=== PATIENT | female | born 1950 | race Caucasian/White ===

== ENCOUNTER 2022-07-14 16:49 | Inpatient (IN) ==
[2022-07-14 17:13] LABS: POC Calcium, Ionized 0.91 (1.16-1.32); POC Creatinine 1.1 (0.6-1.2); POC Potassium 2.4 (3.3-5.1)
[2022-07-14] MEDS ORDERED: POTASSIUM CHLORIDE 20 MEQ in DEXTROSE 5% IN WATER 250 ML IV ONE ×2 (17:22→21:27)
[2022-07-14] MEDS ORDERED: POTASSIUM CHLORIDE 20 MEQ TABLET PO ONE (17:22)
--- NOTE | 2022-07-14 17:24 | Emergency Department Note ---
HPI General Chief complaint: Recheck/Abnormal Lab/Rx Stated complaint: Potassium infusion Time Seen by Provider: 07/14/22 16:50 Source: patient Mode of arrival: ambulatory History of Present Illness HPI Narrative: Narrative: This is a 71-year-old female presenting emergency department from urgent care for hyponatremia and hypokalemia. The patient patient reports that she has started on new blood pressure medication called chlorthalidone. She does not take supplemental potassium. She has never taken this medication before and she started on May 29. She tells me that she has been having increased weakness and confusion now for a while and over the last couple days her balance has been much worse as well. Yesterday she started to have tachypnea and actually called 911 and paramedics came and checked her vital signs and they thought at the time that she was having a panic attack. She then had another episode today and was concerned and went to urgent care at [facility]. They did a CMP there which showed a sodium of 122 and a potassium of 2.6 normal glucose at 109. She has been treated for an upper respiratory infection which has been improving since she has been on Augmentin. She has not had any new medications other than those. She has not been having any fevers chest pain shortness of breath abdominal pain nausea vomiting diarrhea or other focal neurological deficits. She reports that she has not been drinking more water than is usual and actually has probably been drinking less. She is treated for hypertension, dyslipidemia, seasonal allergies, restless leg syndrome. Related Data Home Medications Medication Instructions Recorded Confirmed Lactobacillus,Bifido 30 500 ea PO DAILY 05/27/22 07/14/22 mg-colostrum 500 mg-FOS 50 mg oral powder pack (Probiotic Plus Colostrum) aspirin 81 mg tablet,delayed 81 mg PO QDAY 05/27/22 07/14/22 release (Adult Low Dose Aspirin) atorvastatin 40 mg tablet 40 mg PO QDAY 05/27/22 07/14/22 clobetasol 0.05 % scalp solution 1 applic topical .2XWEEK PRN Skin 05/27/22 07/14/22 Irritation conjugated estrogens 0.625 mg/gram 0.3125 mg vaginal .2XWEEK 05/27/22 07/14/22 vaginal cream (Premarin) fluticasone propionate 50 1 spray intranasal QDAY 05/27/22 07/14/22 mcg/actuation nasal spray,suspension montelukast 10 mg tablet 10 mg PO QDAY 05/27/22 07/14/22 ropinirole 1 mg tablet 1 mg PO QHS 05/27/22 07/14/22 lisinopril 20 mg tablet 20 mg PO DAILY 07/14/22 07/14/22 Previous Rx's Medication Instructions Recorded chlorthalidone 25 mg tablet 25 mg PO Q OTHER DAY HTN #30 tabs 05/29/22 Allergies Allergy/AdvReac Type Severity Reaction Status Date / Time No Known Drug Allergies Allergy Verified 05/29/22 15:00 Review of Systems ROS ROS Narrative: Narrative: All systems ED: reviewed and negative except as stated. PFSH Narrative Patient History Narrative: Narrative: Medical/Surgical/Family History All Active Problems (Updated 07/14/22 @ 18:46 by Dejon Morales PA-C) COPD (chronic obstructive pulmonary disease) (Acute) Hypokalemia (Acute) Hyponatremia (Acute) Decreased renal function (Chronic) Menopausal state (Chronic) Essential hypertension, benign (Chronic) Chronic kidney disease (Chronic) Mixed hyperlipidemia (Chronic) Restless leg syndrome (Chronic) Allergic rhinitis (Chronic) Elevated serum creatinine (Acute) Medical History Allergic rhinitis Chronic kidney disease Decreased renal function Essential hypertension, benign No biochemical evidence of secondary causes of hypertension and CT appearance of kidneys does not suggest renovascular disease Menopausal state Mixed hyperlipidemia Restless leg syndrome Surgical History No pertinent past surgical history Family History Mother Hypertension Father , from heart complications due to rheumatic fever Rheumatic fever Hypertension Social History Smoking Status: Never smoker Alcohol Intake Frequency: does not drink Substance Use: does not use Exam Narrative Narrative: Narrative: Course Vital Signs Vital signs: Vital Signs Temperature 98.1 F 07/14/22 16:55 Pulse Rate 61 07/14/22 16:55 Respiratory Rate 16 07/14/22 16:55 Blood Pressure 151/83 07/14/22 16:55 Pulse Oximetry (%) 97 07/14/22 16:55 Oxygen Delivery Method Room Air 07/14/22 16:55 Temperature 98.1 F 07/14/22 18:33 Pulse Rate 67 07/14/22 18:33 Respiratory Rate 12 07/14/22 18:33 Blood Pressure 185/96 07/14/22 18:33 Pulse Oximetry (%) 97 07/14/22 18:33 Oxygen Delivery Method Room Air 07/14/22 16:55 MDM MDM Narrative Medical decision making narrative: Narrative: The patient was sent over here with known hypokalemia and hyponatremia. I do think that this is most likely due to the chlorthalidone that was started last month. I have ordered 20 mEq of IV potassium along with 40 mEq of oral potassium and 1 L of normal saline. I have also ordered work-up labs for hyponatremia which are pending at admission EKG shows normal sinus rhythm with prolonged QTc. I spoke with the hospitalist Dr Romeo who agreed to admit the patient for further evaluation and treatment. Lab Data Labs: Lab Results 07/14/22 Range/Units 17:11 POC Hct 40.0 (36-48) POC Sodium 120 L (133-145) POC Potassium 2.4 L* (3.3-5.1) POC Chloride 79 L (96-108) POC Total CO2 28.0 (22-30) POC BUN 13 (6-20) POC Creatinine 1.1 (0.6-1.2) POC Glucose 111 H (70-105) POC WB Ioniz Calcium 0.91 L (1.16-1.32) EKG Data EKG #1: EKG results narrative: ECG shows a sinus rhythm at 63 beats a minute, left axis deviation, normal [place] interval narrow QRS QTc is prolonged at [address] segment deviations or hyperacute T waves. Interpretation sinus rhythm with prolonged QTc Discharge Plan Patient/Caregiver Discharge Instructions Pt seen by DIETARY SERVER/PA only: Yes Clinical Impression: Hyponatremia, Hypokalemia Patient Disposition: Xfer As Inpt ([facility]) Condition: Serious Discharge Date/Time: 07/14/22 18:40 For this patient encounter, I reviewed the midlevel providers documentation, medical decisionmaking, and treatment plan. I discussed the case with the midlevel provider, although I did not personally evaluate the patient.
[2022-07-14] MEDS ORDERED: 0.9 % SODIUM CHLORIDE 1,000 ML IV SCH (17:30)
--- NOTE | 2022-07-14 18:29 | Internal Med History&Physical ---
HPI History of Present Illness Patient information: Note initiated : 07/14/22 at 6:27 pm Service Date, if different from initiated Date: [] Patient: Cristhian Hung a 71 y/o F admitted on for Potassium infusion. Chief Complaint: [General body weakness] Chief complaint: General body weakness History of present illness: Ms. Hung is a 71 year old F history of essential hypertensions, dyslipidemia, restless leg syndrome, COPD, presenting with 2-day history of worsening general body weakness. She is also commenting of leg cramps. She denies any upper extremity muscle cramps otherwise. She denies any confusions. Of note, her PCP switched her blood pressure medications from lisinopril to Chlorthalidone about 6 weeks ago. Labs drawn from urgent care earlier today showing significant findings including hyponatremia with serum sodium level of 120 as well as hypokalemia with serum potassium level 2.4. She was urged to come to our ED for further evaluation and treatments. Rest of the labs including TSH and serum mag nesium level pending. She was given potassium chloride 40 M EQ orally as well as 20 mEq IV. She is also currently receiving normal saline 1 L bolus in the ED. EKG pending. Admission request is called for symptomatic electrolyte imbalance with hyponatremia and hypokalemia likely secondary to medication side effects. Constitutional Constitutional: Present weakness; Absent chills, excessive sweating, fatigue or fever(s) EENT Eyes: Absent blurry vision, change in vision, loss of vision or other visual disturbances Ears: Absent decreased hearing or tinnitus Nose, mouth and throat: Absent abnormal hearing, dry mouth, headache(s), nasal congestion or sore throat Cardiovascular Cardiovascular: Absent chest pain, chest pain at rest, edema, irregular heart rhythm or palpatations Respiratory Respiratory: Absent cough, dyspnea or wheezing Gastrointestinal Gastrointestinal: Absent abdominal pain, constipation, diarrhea, nausea or vomiting Musculoskeletal Musculoskeletal: Absent back pain, deformity, limited range of motion, muscle cramps, muscle weakness or numbness Integumentary Integumentary: Absent lesions, rash or wounds Neurological Neurological: Absent focal weakness, headache(s) or numbness Psychiatric Psychiatric: Absent anxiety, depression or hallucinations PFSH PFSH All Active Problems (Updated 07/14/22 @ 18:33 by Noe Romeo MD) COPD (chronic obstructive pulmonary disease) (Acute) Hypokalemia (Acute) Hyponatremia (Acute) Decreased renal function (Chronic) Menopausal state (Chronic) Essential hypertension, benign (Chronic) Chronic kidney disease (Chronic) Mixed hyperlipidemia (Chronic) Restless leg syndrome (Chronic) Allergic rhinitis (Chronic) Elevated serum creatinine (Acute) Medical History Allergic rhinitis Chronic kidney disease Decreased renal function Essential hypertension, benign No biochemical evidence of secondary causes of hypertension and CT appearance of kidneys does not suggest renovascular disease Menopausal state Mixed hyperlipidemia Restless leg syndrome Surgical History No pertinent past surgical history Family History Mother Hypertension Father , from heart complications due to rheumatic fever Rheumatic fever Hypertension Social History (Updated 05/27/22 @ 10:04 by Jennyfer Newton) marital status: occupational status: retired physical activity: walking frequency: 3-4 times per week smoking status: Never smoker alcohol intake frequency: does not drink substance use type: does not use MEDS/ALLERGIES Home Medications and Allergies Home Medications Medication Instructions Recorded Confirmed Type Lactobacillus,Bifido 30 500 ea PO DAILY 05/27/22 07/14/22 History mg-colostrum 500 mg-FOS 50 mg oral powder pack (Probiotic Plus Colostrum) aspirin 81 mg tablet,delayed 81 mg PO QDAY 05/27/22 07/14/22 History release (Adult Low Dose Aspirin) atorvastatin 40 mg tablet 40 mg PO QDAY 05/27/22 07/14/22 History clobetasol 0.05 % scalp solution 1 applic topical .2XWEEK PRN Skin 05/27/22 07/14/22 History Irritation conjugated estrogens 0.625 mg/gram 0.3125 mg vaginal .2XWEEK 05/27/22 07/14/22 History vaginal cream (Premarin) fluticasone propionate 50 1 spray intranasal QDAY 05/27/22 07/14/22 History mcg/actuation nasal spray,suspension montelukast 10 mg tablet 10 mg PO QDAY 05/27/22 07/14/22 History ropinirole 1 mg tablet 1 mg PO QHS 05/27/22 07/14/22 History chlorthalidone 25 mg tablet 25 mg PO Q OTHER DAY HTN #30 tabs 05/29/22 07/14/22 Rx lisinopril 20 mg tablet 20 mg PO DAILY 07/14/22 07/14/22 History Allergies Allergy/AdvReac Type Severity Reaction Status Date / Time No Known Drug Allergies Allergy Verified 05/29/22 15:00 EXAM Constitutional Vitals: Temp Pulse Resp BP Pulse Ox O2 Del Method 36.7 C 62 13 176/97 100 Room Air 07/14/22 16:55 07/14/22 17:46 07/14/22 17:46 07/14/22 17:46 07/14/22 17:46 07/14/22 16:55 DATA Data Completed and Pending Labs: Labs from last 24 hours 07/14/22 07/14/22 17:11 17:10 POC Hct 40.0 POC Sodium 120 L POC Potassium 2.4 L* POC Chloride 79 L POC Total CO2 28.0 POC BUN 13 POC Creatinine 1.1 POC Glucose 111 H Osmolality Pending POC WB Ioniz Calcium 0.91 L Phosphorus Pending Magnesium Pending TSH Pending Urine Urea Nitrogen Pending A/P Assessment and plan (1) Hyponatremia: Status: Acute (2) Hypokalemia: Status: Acute (3) Essential hypertension, benign: Status: Chronic Comment: No biochemical evidence of secondary causes of hypertension and CT appearance of kidneys does not suggest renovascular disease (4) Mixed hyperlipidemia: Status: Chronic (5) Restless leg syndrome: Status: Chronic (6) COPD (chronic obstructive pulmonary disease): Status: Acute Narrative A/P Narrative: Assessment and Plans: 1. 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 Hypokalemia: Secondary to recently added diuretics, will stop Chlorthalidone She was given potassium chloride 40 M EQ orally as well as 20 mEq IV BMP q6hr to trend serum potassium level Also check serum Mg level, will replace if needed Potassium chloride Nicholas ECG 12 leads 3. Essential hypertension: Lisinopril Amlodipine Stop Chlorthalidone Hydralazine 10mg IV q4-6hr PRN SBP>=180 and/or DBP>=110mmHg 4. Mixed dyslipidemia: Continue statin therapy 5. Restless leg syndrome: Continue ropinirole 6. h/o COPD, stable: Montelukast Continue bronchodilator from home regimen GI ppx: not currently indicated DVT ppx: Lovenox Code status: Full Prognosis: guarded Disposition: inpatient PCU; PT Time Spent With Patient Time: Total time spent is greater than 50% in coordination of care (as documented) at patient's floor/unit and/or counseling patient: Initial: Total time with patient: 55 - 74 minutes
[2022-07-14] MEDS ORDERED: LACTULOSE 20 GM/30 ML ORAL.SOL PO PRN (18:43)
[2022-07-14] MEDS ORDERED: SENNOSIDES 1 TABLET PO PRN (18:43)
[2022-07-14] MEDS ORDERED: ONDANSETRON 4 MG/2 ML VIAL IV PRN (18:43)
[2022-07-14] MEDS ORDERED: hydrALAZINE 20 MG/ML VIAL IV PRN (18:43)
[2022-07-14] MEDS ORDERED: ACETAMINOPHEN 325 MG TABLET PO PRN (18:43)
[2022-07-14] MEDS ORDERED: IPRATROPIUM/ALBUTEROL 3 ML AMPUL.NEB NEB PRN (18:43)
[2022-07-14 19:00] LABS: Phosphorous 2.3 mg/dL (2.5-4.5); Thyroid Stimulating Hormone 2.03 uIU/mL (0.27-5.01)
[2022-07-14] MEDS ORDERED: CLOBETASOL 0.05% TOPICAL PRN (19:08)
[2022-07-14] MEDS: 0.9 % SODIUM CHLORIDE 1,000 ML IV SCH (19:38)
[2022-07-14 19:49] LABS: Appearance,Urine CLEAR (Clear); Bilirubin,Urine Negative (Negative); Color,Urine STRAW; Culture Indicated,Urine No; Glucose,Urine (UA) Negative (Negative); Ketones,Urine 5 mg/dL (Negative); Leukocyte Esterase,Urine Negative /uL (Negative); Nitrate,Urine Negative (Negative); Protein,Urine Negative (Negative); Specific Gravity,Urine 1.003 (1.000-1.035); Urine Blood Negative (Negative); Urine RBC < 1 /hpf (0-3); Urine Squamous Epithelial Cell 0 /hpf (0-4); Urine WBC < 1 /hpf (0-4); Urobilinogen,Urine Negative
[2022-07-14 19:52] LABS: Urea Nitrogen, Urine 168 mg/dL
[2022-07-14] MEDS: DOCUSATE SODIUM 100 MG CAPSULE PO SCH (20:48)
[2022-07-14] MEDS: 0.9 % SODIUM CHLORIDE 10 ML SYRINGE IV SCH (20:56)
[2022-07-14] MEDS ORDERED: rOPINIRole 1 MG TABLET PO SCH (21:00)
[2022-07-14 22:55] LABS: Creatinine,Urine Random 28.4 mg/dL (28.0-217.0); Uric Acid,Urine Random 10.1 mg/dL (37.0-92.0)
[2022-07-15 01:50] LABS: Blood Urea Nitrogen 9 mg/dL (8-23); Calcium 8.2 mg/dL (8.6-10.4); Carbon Dioxide 28 mmol/L (22-30); Chloride 94 mmol/L (96-108); Glomerular Filtration Rate 73; Glucose 113 mg/dL (70-105)
[2022-07-15] MEDS: 0.9 % SODIUM CHLORIDE 10 ML SYRINGE IV SCH (05:05)
[2022-07-15 06:42] LABS: Basophils # (Auto) 0.02 K/mcL (0.00-0.30); Basophils % (Auto) 0.3 % (0.0-2.0); Eosinophils # (Auto) 0.02 K/mcL (0.00-0.70); Eosinophils % (Auto) 0.3 % (0.0-7.0); Hematocrit 33.8 % (34.1-44.9); Lymphocytes # (Auto) 1.16 K/mcL (1.50-4.80); Lymphocytes % (Auto) 18.8 % (15.5-49.0); Mean Cell Volume 87.1 fL (80.0-100.0); Mean Corpuscular HGB Conc 35.5 g/dL (31.0-36.0); Mean Platelet Volume 9.9 fL (8.8-12.5); Monocytes # (Auto) 0.94 K/mcL (0.10-0.90); Monocytes % (Auto) 15.2 % (1.0-12.0); Neutrophils % (Auto) 64.6 % (38.0-78.0); Platelet Count 255 K/mcL (140-440); RBC 3.88 M/mcL (3.59-5.38); Red Cell Distribution Width 11.9 % (11.5-14.5); WBC 6.2 K/mcL (4.5-11.0)
[2022-07-15 06:58] LABS: Phosphorous 2.7 mg/dL (2.5-4.5)
[2022-07-15 07:01] LABS: Blood Urea Nitrogen 8 mg/dL (8-23); Calcium 8.4 mg/dL (8.6-10.4); Carbon Dioxide 27 mmol/L (22-30); Chloride 95 mmol/L (96-108); Glomerular Filtration Rate 73; Glucose 99 mg/dL (70-105)
[2022-07-15] MEDS: ENOXAPARIN 40 MG/0.4 ML SYRINGE SQ SCH ×2 (08:12→08:52)
[2022-07-15] MEDS: DOCUSATE SODIUM 100 MG CAPSULE PO SCH ×2 (08:12→08:23)
[2022-07-15] MEDS: ATORVASTATIN 40 MG TABLET PO SCH ×2 (08:12→08:23)
[2022-07-15] MEDS: amLODIPine 10 MG TABLET PO SCH ×2 (08:13→08:21)
[2022-07-15] MEDS: 0.9 % SODIUM CHLORIDE 1,000 ML IV SCH (08:59)
[2022-07-15] MEDS ORDERED: LACTOBACILLUS 1 CAPSULE PO SCH (09:00)
[2022-07-15] MEDS ORDERED: LISINOPRIL 20 MG TABLET PO SCH (09:00)
[2022-07-15] MEDS ORDERED: FLUTICASONE PROPIONATE SPRAY.NAS NS SCH (09:00)
[2022-07-15] MEDS ORDERED: ASPIRIN 81 MG TAB.CHEW PO SCH (09:00)
[2022-07-15] MEDS ORDERED: CETIRIZINE 10 MG TABLET PO SCH (09:00)
[2022-07-15] MEDS ORDERED: MONTELUKAST 10 MG TABLET PO SCH (09:00)
[2022-07-15] MEDS ORDERED: POTASSIUM CHLORIDE 20 MEQ TABLET PO ONE (10:00)
--- NOTE | 2022-07-15 10:41 | Discharge Summary ---
Discharge Provider Provider IMPORTANT FOLLOW-UP INFORMATION FOR PCP: Patient information: Note initiated : 07/15/22 at 10:37 am Service Date, if different from initiated Date: [] Patient: Cristhian Hung 71 y/o F admitted on 07/14/22 for Potassium infusion/ low sodium, low potassium. Chief Complaint: [] Date of admission: 07/14/22 18:40 Discharge date: 07/15/22 Primary care physician: Jeffery Guerrero DO Attending physician on admission: Noe Romeo Consults: 07/14/22 17:52 Consult to Physician [CONS] Stat Comment: Consulting Provider: Noe Romeo Reason For Exam: Physician to Consult Attending physician on discharge: Noe Martin Pujhonny COURSE Hospital Course Hospital course: Ms. Hung is a 71 year old F history of essential hypertensions, dyslipidemia, restless leg syndrome, COPD, presenting with 2-day history of worsening general body weakness. She is also commenting of leg cramps. She denies any upper extremity muscle cramps otherwise. She denies any confusions. Of note, her PCP switched her blood pressure medications from lisinopril to Chlorthalidone about 6 weeks ago. Labs drawn from urgent care earlier today showing significant findings including hyponatremia with serum sodium level of 120 as well as hypokalemia with serum potassium level 2.4. She was urged to come to our ED for further evaluation and treatments. Rest of the labs including TSH and serum magnesium level pending. She was given potassium chloride 40 M EQ orally as well as 20 mEq IV. She is also currently receiving normal saline 1 L bolus in the ED. EKG pending. Admission request is called for symptomatic electrolyte imbalance with hyponatremia and hypokalemia likely secondary to medication side effects. 07/15: Serum sodium 132, potassium 3.3, magnesium 22. Blood pressure 111/67mmHg. patient has reached clinical stability. Decision made to discharge patient home with prescription sent to pharmacy. 2 weeks PCP follow-up appointment made for the patient. All questions answered prior to patient being physically discharged. Discharge diagnosis: Hyponatremia, hypokalemia Time Spent with Patient Time attestation: Total time spent providing and/or coordinating discharge services: Time spent: Less than 30 minutes EXAM Constitutional Vitals: Temp Pulse Resp BP Pulse Ox O2 Del Method 36.8 C 54 L 15 111/67 98 Room Air 07/15/22 08:01 04/26/23 06:01 07/15/22 10:01 07/15/22 10:01 07/15/22 10:01 07/15/22 10:01 General appearance: cooperative and no acute distress Head Head exam: Present atraumatic and normocephalic Eye Eye exam: Present EOMI and PERRL ENT ENT exam: Present mucous membranes moist, normal exam and normal external ear exam Neck Neck exam: Present normal inspection; Absent lymphadenopathy, tenderness or thyromegaly Respiratory Respiratory exam: Absent accessory muscle use, respiratory distress or wheezes Cardiovascular Cardiovascular exam: Present normal rate and rhythm; Absent JVD GI/Abdominal GI/Abdominal exam: Present normal bowel sounds and soft; Absent organomegaly or tenderness Extremities Exam Extremities exam: Present full ROM, normal capillary refill and normal inspection; Absent tenderness Neurological Exam Neurological exam: Present alert, CN II-XII intact and oriented X3; Absent motor sensory deficit Psychiatric Psychiatric exam: Present normal affect and normal mood; Absent anxious or depressed Skin Skin exam: Present dry and intact Discharge Data Data Completed and Pending Labs on day of discharge: Labs from last 24 hours 07/15/22 07/15/22 07/15/22 05:12 05:12 05:12 WBC RBC Hgb Hct POC Hct MCV MCH MCHC RDW Plt Count MPV Immature Gran % (Auto) Neut % (Auto) Lymph % (Auto) [place] % (Auto) Eos % (Auto) Baso % (Auto) Lymph # (Auto) [place] # (Auto) Eos # (Auto) Baso # (Auto) Immature Gran # Absolute Neutrophils POC Sodium Sodium 132 L POC Potassium Potassium 3.3 POC Chloride Chloride 95 L Carbon Dioxide 27 POC Total CO2 Anion Gap 10.0 POC BUN BUN 8 Creatinine 0.8 POC Creatinine GFR Calculation 73 Glucose 99 POC Glucose Osmolality Calcium 8.4 L POC WB Ioniz Calcium Phosphorus 2.7 Magnesium 2.2 TSH Random Cortisol Cortisol AM Sample 9.3 Urine Color Urine Appearance Urine pH Ur Specific [place] Urine Protein Urine Glucose (UA) Urine Ketones Urine Occult Blood Urine Nitrate Urine Bilirubin Urine Urobilinogen Ur Leukocyte Esterase Urine RBC Urine WBC Ur Squamous Epith Cells Urine Bacteria Ur Culture Indicated? Urine Osmolality Ur Random Creatinine Ur Random Sodium Ur Random Uric Acid Urine Urea Nitrogen 07/15/22 07/15/22 07/14/22 05:12 00:55 19:06 WBC 6.2 RBC 3.88 Hgb 12.0 Hct 33.8 L POC Hct MCV 87.1 MCH 30.9 MCHC 35.5 RDW 11.9 Plt Count 255 MPV 9.9 Immature Gran % (Auto) 0.8 H Neut % (Auto) 64.6 Lymph % (Auto) 18.8 Clayton % (Auto) 15.2 H Eos % (Auto) 0.3 Baso % (Auto) 0.3 Lymph # (Auto) 1.16 L [place] # (Auto) 0.94 H Eos # (Auto) 0.02 Baso # (Auto) 0.02 Immature Gran # 0.05 Absolute Neutrophils 3.98 POC Sodium Sodium 129 L POC Potassium Potassium 3.3 POC Chloride Chloride 94 L Carbon Dioxide 28 POC Total CO2 Anion Gap 7.0 L POC BUN BUN 9 Creatinine 0.8 POC Creatinine GFR Calculation 73 Glucose 113 H POC Glucose Osmolality Calcium 8.2 L POC WB Ioniz Calcium Phosphorus Magnesium TSH Random Cortisol Cortisol AM Sample Urine Color Straw Urine Appearance Clear Urine pH 7.0 Ur Specific [place] 1.003 Urine Protein Negative Urine Glucose (UA) Negative Urine Ketones 5 A Urine Occult Blood Negative Urine Nitrate Negative Urine Bilirubin Negative Urine Urobilinogen Negative Ur Leukocyte Esterase Negative Urine RBC < 1 Urine WBC < 1 Ur Squamous Epith Cells 0 Urine Bacteria None Ur Culture Indicated? No Urine Osmolality Ur Random Creatinine Ur Random Sodium Ur Random Uric Acid Urine Urea Nitrogen 07/14/22 07/14/22 07/14/22 19:06 17:11 17:10 WBC RBC Hgb Hct POC Hct 40.0 MCV MCH MCHC RDW Plt Count MPV Immature Gran % (Auto) Neut % (Auto) Lymph % (Auto) [place] % (Auto) Eos % (Auto) Baso % (Auto) Lymph # (Auto) [place] # (Auto) Eos # (Auto) Baso # (Auto) Immature Gran # Absolute Neutrophils POC Sodium 120 L Sodium POC Potassium 2.4 L* Potassium POC Chloride 79 L Chloride Carbon Dioxide POC Total CO2 28.0 Anion Gap POC BUN 13 BUN Creatinine POC Creatinine 1.1 GFR Calculation Glucose POC Glucose 111 H Osmolality Calcium POC WB Ioniz Calcium 0.91 L Phosphorus Magnesium TSH Random Cortisol 24.7 Cortisol AM Sample Urine Color Urine Appearance Urine pH Ur Specific [place] Urine Protein Urine Glucose (UA) Urine Ketones Urine Occult Blood Urine Nitrate Urine Bilirubin Urine Urobilinogen Ur Leukocyte Esterase Urine RBC Urine WBC Ur Squamous Epith Cells Urine Bacteria Ur Culture Indicated? Urine Osmolality 170 Ur Random Creatinine 28.4 Ur Random Sodium 32 Ur Random Uric Acid 10.1 L Urine Urea Nitrogen 07/14/22 07/14/22 17:10 17:10 WBC RBC Hgb Hct POC Hct MCV MCH MCHC RDW Plt Count MPV Immature Gran % (Auto) Neut % (Auto) Lymph % (Auto) [place] % (Auto) Eos % (Auto) Baso % (Auto) Lymph # (Auto) [place] # (Auto) Eos # (Auto) Baso # (Auto) Immature Gran # Absolute Neutrophils POC Sodium Sodium POC Potassium Potassium 2.5 L* POC Chloride Chloride Carbon Dioxide POC Total CO2 Anion Gap POC BUN BUN Creatinine POC Creatinine GFR Calculation Glucose POC Glucose Osmolality 251 L Calcium POC WB Ioniz Calcium Phosphorus 2.3 L Magnesium 2.1 TSH 2.03 Random Cortisol Cortisol AM Sample Urine Color Urine Appearance Urine pH Ur Specific [place] Urine Protein Urine Glucose (UA) Urine Ketones Urine Occult Blood Urine Nitrate Urine Bilirubin Urine Urobilinogen Ur Leukocyte Esterase Urine RBC Urine WBC Ur Squamous Epith Cells Urine Bacteria Ur Culture Indicated? Urine Osmolality Ur Random Creatinine Ur Random Sodium Ur Random Uric Acid Urine Urea Nitrogen 168 Discharge Plan Patient/Caregiver Discharge Instructions Activity: increase activity as tolerated Diet: Regular Diet Instructions: Hyponatremia (GEN), Hypokalemia (GEN) Prescriptions: New potassium chloride 20 mEq tablet extended release 20 meq PO BID Qty: 14 0RF Continued ropinirole 1 mg tablet 1 mg PO QHS Rx Instructions: administer 1-3 hours before bedtime clobetasol 0.05 % solution 1 applic topical .2XWEEK PRN (Reason: Skin Irritation) atorvastatin 40 mg tablet 40 mg PO QDAY fluticasone propionate 50 mcg/actuation spray,suspension 1 spray intranasal QDAY Rx Instructions: administer into each nostril montelukast 10 mg tablet 10 mg PO QDAY Premarin 0.625 mg/gram cream 0.3125 mg vaginal .2XWEEK Probiotic Plus Colostrum 30-500-50 mg powder in packet 500 ea PO DAILY aspirin [Adult Low Dose Aspirin] 81 mg tablet,delayed release (DR/EC) 81 mg PO QDAY Zyrtec 10 mg Capsule 10 mg PO QDAY lisinopril 20 mg Tablet 20 mg PO DAILY Qty: 30 0RF Discontinued chlorthalidone 25 mg tablet 25 mg PO Q OTHER DAY Qty: 30 12RF Rx Instructions: Increase to 25 mg a day as directed by MD if BP running > 140/90 Follow Up Plan Follow up with: Jeffery Guerrero DO [Primary Care Provider] - 07/21/22 10:00 am (Please arrive 15 minutes early) Patient Disposition: Home, Self-Care Prognosis: Serious Rehab Potential: Good I certify that the patient requires SNF services: No Overall status at discharge: patient is back to baseline Discharge Orders: Discharge Order (Routine); Ordered 07/15/22 Ordered By: Noe Romeo
[2022-07-15] MEDS ORDERED: ATORVASTATIN 40 MG TABLET PO SCH (21:00)
--- NOTE | 2022-07-19 19:15 | EKG ---
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
== END 2022-07-15 11:17 | disposition home or self-care (01) | DRG 641 ==
LOC: ED 16:49 → ICU 18:40
PROVIDERS: ADMIT Internal Medicine; ATTEND Internal Medicine